=== PATIENT | male | born 1945 | race Caucasian/White ===

== ENCOUNTER 2018-07-07 10:44 | Inpatient (IN) | payer MEDICARE ==
[~2018-07-07] VITALS: Ht 175.3 cm; Wt 80.3 kg
[2018-07-07] MEDS ORDERED: acetaminophen 325mg tablet PO STA (11:12)
[2018-07-07] MEDS ORDERED: CefTRIAXone 2gm/D5W 50ml 50 ML IV ONE (11:15)
[2018-07-07] MEDS ORDERED: normal saline 1000ML IV soln IVB ONE (11:15)
[2018-07-07 12:19] LABS: BASOPHILS % (AUTO) 0.1 % (0-1); EOSINOPHILS # (AUTO) 0.4 X10'3 (0-0.9); EOSINOPHILS % (AUTO) 2.2 % (0-6); HEMATOCRIT 41.4 % (42.0-52.0); LYMPHOCYTES # (AUTO) 0.7 X10'3 (1.1-4.8); LYMPHOCYTES % (AUTO) 3.8 % (21-51); MEAN CORPUSCULAR HEMOGLOBIN 30.9 PG (27.0-31.0); MEAN CORPUSCULAR HGB CONC 33.9 % (33.0-36.5); MEAN CORPUSCULAR VOLUME 91.2 FL (78-98); MEAN PLATELET VOLUME 9.4 FL (7.4-10.4); MONOCYTES # (AUTO) 1.5 X10'3 (0-0.9); MONOCYTES % (AUTO) 8.2 % (2-12); NEUTROPHILS % (AUTO) 85.7 % (42-75); PLATELET COUNT 202 X10'3 (140-440); RED BLOOD COUNT 4.54 X10'6 (4.70-6.10); RED CELL DISTRIBUTION WIDTH 14.2 % (11.5-14.5); WHITE BLOOD COUNT 18.7 X10'3 (4.5-11.0)
[2018-07-07 12:33] LABS: CLARITY,URINE CLEAR (Clear); COLOR,URINE STRAW (Yellow); GLUCOSE, URINE NEGATIVE (Neg); KETONES,URINE NEGATIVE (Neg); LEUKOCYTE ESTERASE ,URINE TRACE (Neg); NITRITES, URINE NEGATIVE (Neg); OCCULT BLOOD,URINE MODERATE (Neg); PROTEIN,URINE NEGATIVE (Neg); UROBILINOGEN,URINE 0.2 E.U/dL (0.2-1.0)
[2018-07-07 12:34] LABS: INR 1.1 INR; PARTIAL THROMBOPLASTIN TIME 26 SECONDS (22-32)
[2018-07-07 12:36] LABS: PLATELET ESTIMATE NORMAL; TOTAL CELLS COUNTED 100; TOXIC GRANULATION 1+
[2018-07-07 12:38] LABS: UA COLLECTION TYPE FOLEY CATH
[2018-07-07 12:39] LABS: BACTERIA,URINE FEW /HPF (Neg); MUCUS STRANDS NONE SEEN /LPF (Neg); RBC,URINE 0-2 /HPF (0-2); SQUAMOUS EPITHELIAL CELL,UR NONE SEEN /LPF (FEW)
[2018-07-07 12:59] LABS: ALBUMIN 2.7 G/DL (3.4-5.0); ANION GAP 13 (8-16); BILIRUBIN,TOTAL 0.5 MG/DL (0.1-1.0); BLOOD UREA NITROGEN 14 MG/DL (7-18); BUN/CREATININE RATIO 13.1 (5.4-32.0); CALCIUM 8.7 MG/DL (8.5-10.1); CHLORIDE 99 MMOL/L (99-107); CREATININE 1.07 MG/DL (0.60-1.10); GLUCOSE 113 MG/DL (70-104); MAGNESIUM 1.8 MG/DL (1.5-2.4); POTASSIUM 3.8 MMOL/L (3.5-5.1); SODIUM 137 MMOL/L (135-145); TOTAL CARBON DIOXIDE 25.5 MMOL/L (24-32); TOTAL PROTEIN 7.4 G/DL (6.4-8.2); eGFR 68 ML/MIN
[2018-07-07 13:00] LABS: ALANINE AMINOTRANSFERASE 28 U/L (12-78); ALBUMIN/GLOBULIN RATIO 0.6 (1.1-1.5); ALKALINE PHOSPHATASE 142 IU/L (46-116); ASPARTATE AMINO TRANSFERASE 27 U/L (10-37)
[2018-07-07] MEDS ORDERED: ETAN50DI3 (13:19)
[2018-07-07] MEDS ORDERED: LEVO100T PO (13:19)
[2018-07-07] MEDS ORDERED: [UNRECOGNIZED DRUG - SUPPLY] (13:19)
[2018-07-07] MEDS ORDERED: acetaminophen 325mg tablet PO PRN ×2 (14:25)
[2018-07-07] MEDS ORDERED: HYDROcodone/acetaminophen 5mg/325mg tablet PO PRN (14:25)
[2018-07-07] MEDS ORDERED: potassium Cl 40MEQ/NS 500ml 500 ML IV PRN ×2 (14:25)
[2018-07-07] MEDS ORDERED: magnesium 1gm/100ml D5W IVPB 100 ML IV PRN (14:25)
[2018-07-07] MEDS ORDERED: ondansetron/PF 4mg/2ml inj IV PRN (14:25)
[2018-07-07] MEDS ORDERED: magnesium Cl slow-release 64mg tablet PO PRN (14:25)
[2018-07-07] MEDS ORDERED: magnesium 4gm in 100ml NS 100 ML IV PRN (14:25)
[2018-07-07] MEDS ORDERED: potassium Cl 20 mEq SR tablet PO PRN ×2 (14:25)
[2018-07-07] MEDS: normal saline 1000ml 1,000 ML IV SCH (14:36)
[2018-07-07 16:42] VITALS: BP 132/73
[2018-07-07 19:00] VITALS: BP 128/86
[2018-07-07] MEDS: docusate sod 100mg capsule PO SCH (19:31)
[2018-07-07] MEDS: heparin, porcine 5000 units/ml vial SQ SCH (19:36)
[2018-07-07] MEDS ORDERED: tamsulosin 0.4mg capsule PO SCH (21:00)
[2018-07-07] MEDS ORDERED: temazepam 15mg capsule PO PRN (21:00)
[2018-07-08] VITALS: BP_SYST 122; BP_SYST 141; BP_DIAS 73; BP_DIAS 77
[2018-07-08] MEDS: normal saline 1000ml 1,000 ML IV SCH ×2 (01:04→11:23)
[2018-07-08 06:10] LABS: BASOPHILS % (AUTO) 0.2 % (0-1); EOSINOPHILS # (AUTO) 0.3 X10'3 (0-0.9); EOSINOPHILS % (AUTO) 3.9 % (0-6); HEMATOCRIT 35.6 % (42.0-52.0); LYMPHOCYTES # (AUTO) 0.8 X10'3 (1.1-4.8); LYMPHOCYTES % (AUTO) 10.5 % (21-51); MEAN CORPUSCULAR HEMOGLOBIN 31.1 PG (27.0-31.0); MEAN CORPUSCULAR HGB CONC 33.8 % (33.0-36.5); MEAN CORPUSCULAR VOLUME 92.2 FL (78-98); MEAN PLATELET VOLUME 9.2 FL (7.4-10.4); MONOCYTES # (AUTO) 0.9 X10'3 (0-0.9); MONOCYTES % (AUTO) 11.1 % (2-12); NEUTROPHILS % (AUTO) 74.3 % (42-75); PLATELET COUNT 167 X10'3 (140-440); RED BLOOD COUNT 3.86 X10'6 (4.70-6.10); RED CELL DISTRIBUTION WIDTH 14.5 % (11.5-14.5); WHITE BLOOD COUNT 8.1 X10'3 (4.5-11.0)
[2018-07-08 06:44] LABS: ANION GAP 9 (8-16); BLOOD UREA NITROGEN 10 MG/DL (7-18); BUN/CREATININE RATIO 13.9 (5.4-32.0); CHLORIDE 111 MMOL/L (99-107); CREATININE 0.72 MG/DL (0.60-1.10); GLUCOSE 94 MG/DL (70-104); MAGNESIUM 1.8 MG/DL (1.5-2.4); POTASSIUM 3.2 MMOL/L (3.5-5.1); SODIUM 144 MMOL/L (135-145); TOTAL CARBON DIOXIDE 24.1 MMOL/L (24-32); eGFR > 90 ML/MIN
[2018-07-08 07:00] VITALS: BP 142/77
[2018-07-08 07:16] LABS: CALCIUM 7.1 MG/DL (8.5-10.1)
[2018-07-08] MEDS ORDERED: levoTHYROXINE 100mcg tablet PO SCH (08:00)
[2018-07-08] MEDS ORDERED: CefTRIAXone 2gm/D5W 50ml 50 ML IV SCH (08:00)
[2018-07-08] MEDS: heparin, porcine 5000 units/ml vial SQ SCH (08:00)
[2018-07-08] MEDS ORDERED: K and/or MAG REPLACEMENT MC SCH (08:00)
[2018-07-08] MEDS: docusate sod 100mg capsule PO SCH (08:10)
[2018-07-08 12:00] VITALS: BP 139/72
[2018-07-08] MEDS ORDERED: TAMS0.4C32 PO (13:37)
[2018-07-08] MEDS ORDERED: CEFD300C3 PO (13:45)
[2018-07-08] MEDS ORDERED: lactobacillus rhamnosus 10,000 MMU CELLS/CAPSULE PO SCH (20:00)
[2018-07-10 08:19] LABS: PSA, FREE 1.82 ng/mL
== END 2018-07-08 16:27 | disposition home or self-care (01) | DRG 872 ==
LOC: ER 12:42 → ED HOLD 14:24 → SUR 3N 16:25
PROVIDERS: ADMIT Internal Medicine; ATTEND Family Medicine
DX: A41.9 Sepsis, unspecified organism (principal); N39.0 Urinary tract infection, site not specified; E03.9 Hypothyroidism, unspecified; M06.9 Rheumatoid arthritis, unspecified; N40.0 Benign prostatic hyperplasia without lower urinary tract symptoms; B96.20 Unspecified Escherichia coli [E. coli] as the cause of diseases classified elsewhere; E87.6 Hypokalemia; E06.3 Autoimmune thyroiditis; Z88.0 Allergy status to penicillin
CPT/HCPCS: 36415; 71045; 76856; 80048; 80053; 81001; 83605; 83735; 84145; 84153; 84154; 84443; 85025; 85610; 85730; 87040; 87070; 87088; 93005; 96365; 99285; G0378; J0696; J1644; J7030